=== PATIENT | female | born 1995 | race Caucasian/White ===

== ENCOUNTER 2017-12-25 14:37 | Emergency (ER) | payer BC ==
[~2017-12-25] VITALS: Ht 172.7 cm; Wt 86.4 kg
[~2017-12-25 14:37] MED LIST: IBUPROFEN600 MG PO; LOMOTIL2.5 MG PO; NAPROSYN500 MG PO
[2017-12-25] MEDS ORDERED: TRAMADOL HYDROC50 MG PO (17:33)
[2017-12-25] MEDS ORDERED: IBUPROFEN600 MG PO (17:33)
[2017-12-25 17:45] VITALS: BP 138/85
== END 2017-12-25 17:45 | disposition home or self-care (01) | DRG 552 ==
LOC: ED 14:37
DX: S32.049A Unspecified fracture of fourth lumbar vertebra, initial encounter for closed fracture (principal); M54.5 Low back pain; M54.2 Cervicalgia; S40.012A Contusion of left shoulder, initial encounter; V80.010A Animal-rider injured by fall from or being thrown from horse in noncollision accident, initial encounter; Y93.52 Activity, horseback riding; Y92.008 Other place in unspecified non-institutional (private) residence as the place of occurrence of the external cause

== ENCOUNTER 2020-06-09 21:16 | Emergency (ER) | payer SELFPAY ==
[~2020-06-09 21:16] MED LIST changes: +TRAMADOL HYDROC50 MG PO
[2020-06-09] MEDS ORDERED: BIRTH CONTROL PILL PO (21:44)
[2020-06-09] MEDS ORDERED: IMITREX25 MG PO (22:30)
[2020-06-09] MEDS ORDERED: REGLAN10 MG PO (22:31)
[2020-06-09 23:46] VITALS: BP 116/53
== END 2020-06-09 23:46 | disposition home or self-care (01) | DRG 103 ==
LOC: ED 21:16
DX: G43.909 Migraine, unspecified, not intractable, without status migrainosus (principal)